=== PATIENT | female | born 1935 | race Caucasian/White ===

== ENCOUNTER 2017-12-21 22:30 | Emergency (ER) | payer OTHER ==
[2017-12-22 01:48] VITALS: BP 135/62
== END 2017-12-22 01:48 | disposition home or self-care (01) ==
LOC: ED 22:30
DX: S09.90XA Unspecified injury of head, initial encounter (principal); I10 Essential (primary) hypertension; E78.00 Pure hypercholesterolemia, unspecified; X58.XXXA Exposure to other specified factors, initial encounter; Y93.89 Activity, other specified; Y92.89 Other specified places as the place of occurrence of the external cause; Y99.8 Other external cause status